=== PATIENT | male | born 1965 | race Caucasian/White ===

== ENCOUNTER → 2022-03-20 10:46 | Outpatient (CLI) | payer OTHER, SELFPAY ==
--- NOTE | 2022-03-20 | DI.RAD.S_ITS ---
PROCEDURE: XR KNEE RT 3V INDICATIONS: Pain in unspecified knee RIGHT KNEE PAIN TECHNIQUE: 3 views of the knee were acquired. COMPARISON: None. FINDINGS: Bones: No fractures or dislocations. No suspicious bony lesions. Prior ACL repair noted. Moderate medial and lateral compartmental joint space narrowing and marginal osteophytes. Moderate patellofemoral joint space narrowing with marginal osteophytes present as well. Soft tissues: No joint effusion. Rounded calcifications in the suprapatellar joint space measures up to 9 mm each. IMPRESSION: Moderate osteoarthritis. Probable suprapatellar calcified loose bodies. ACL repair Approved by: Zbigniew Lopez M.D. on 03/20/2022 at 13:06
== END ==
PROVIDERS: Referring Provider Internal Medicine Cardiovascular Disease; Visit Provider Internal Medicine Cardiovascular Disease
DX: M25.561 Pain in right knee (principal); M17.11 Unilateral primary osteoarthritis, right knee
CPT/HCPCS: 73562